=== PATIENT | female | born 1990 | race Hispanic/Latino ===

== ENCOUNTER 2018-08-19 19:04 | Inpatient (IN) | payer OTHER ==
[~2018-08-19] VITALS: Ht 149.9 cm; Wt 72.1 kg
[2018-08-19] MEDS ORDERED: OXYTOCIN-LR 20 UNITS/1000 ML 1,000 ML IV SCH ×2 (19:30→20:00)
[2018-08-19] MEDS: LACTATED RINGERS 1000ML 1,000 ML IV PRN ×2 (20:20→23:53)
[2018-08-19 20:32] VITALS: BP 127/75
[2018-08-19 20:36] LABS: HEMATOCRIT 31.6 % (36-48); MEAN CORPUSCULAR HEMOGLOBIN 30.3 pg (27.0-33.0); MEAN CORPUSCULAR HGB CONC 33.9 g/dL (32.0-36.0); MEAN CORPUSCULAR VOLUME 89.3 fL (79-99); NUCLEATED RED BLOOD CELLS 0.1 % (0.0-0.19); PLATELET COUNT (AUTO) 139 K/uL (130-400); RED BLOOD CELL COUNT(AUTO) 3.54 MIL/uL (4.00-5.50); RED CELL DISTRIBUTION WIDTH 14.3 % (11.0-15.5); WHITE BLOOD COUNT (AUTO) 8.9 K/uL (4.8-10.8)
[2018-08-19 20:41] LABS: APPEARANCE,URINE Clear (CLEAR); BILIRUBIN,URINE Negative (NEGATIVE); COLOR,URINE Yellow (YELLOW); GLUCOSE, URINE (UA) Negative (NEGATIVE); KETONES,URINE Negative (NEGATIVE); LEUKOCYTE ESTERASE ,URINE Negative (NEGATIVE); NITRATE,URINE Negative (NEGATIVE); OCCULT BLOOD,URINE Negative (NEGATIVE); PROTEIN,URINE Negative (NEGATIVE); UROBILINOGEN,URINE 0.2 mg/dL (0.2-1.0)
[2018-08-19] MEDS ORDERED: PREN1TAB80 PO (21:32)
[2018-08-19] MEDS ORDERED: ACYC800T PO (21:32)
[2018-08-20] MEDS ORDERED: LACTATED RINGERS 500 ML 500 ML IV PRN (09:15)
[2018-08-20] MEDS ORDERED: NALOXONE HCL 0.4 MG/1 ML ML IV PRN (09:15)
[2018-08-20] MEDS ORDERED: EPHEDRINE SULFATE 50 MG/ML AMPULE IVP PRN (09:15)
[2018-08-20] MEDS ORDERED: LIDOCAINE 2%-EPI 1:200,000 20 ML VIAL IJ ONE (09:27)
[2018-08-20] MEDS ORDERED: METHYLERGONOVINE MALEATE 0.2 MG/1 ML ML ONE (11:03)
[2018-08-20] MEDS ORDERED: METHYLERGONOVINE MALEATE 0.2 MG/1 ML ML IM SCH (11:05)
[2018-08-20] MEDS ORDERED: DIPH,PERTUSS(ACELL),TET VAC/PF 0.5 ML VIAL IM PRN (11:30)
[2018-08-20] MEDS ORDERED: BENZOCAINE/LANOLIN/ALOE VERA 60 ML AEROSOL TP PRN (11:30)
[2018-08-20] MEDS ORDERED: MEASLES/MUMPS/RUBELLA VACCINE, LIVE 0.5 ML/VIAL SQ PRN (11:30)
[2018-08-20] MEDS ORDERED: WITCH HAZEL 1 PAD TP PRN (11:30)
[2018-08-20] MEDS ORDERED: LANOLIN 30GM OINTMENT TP PRN (11:30)
[2018-08-20 13:00] VITALS: BP 123/75
[2018-08-20 15:20] VITALS: BP 135/84
[2018-08-20] MEDS: IBUPROFEN 800 MG TAB PO PRN (15:20)
[2018-08-20 19:17] VITALS: BP 122/81
[2018-08-20] MEDS: ACETAMINOPHEN 325 MG TAB PO PRN (20:46)
[2018-08-21 00:36] VITALS: BP 114/63
[2018-08-21 04:05] VITALS: BP 97/60
[2018-08-21] MEDS: IBUPROFEN 800 MG TAB PO PRN (04:20)
[2018-08-21 07:16] VITALS: BP 116/71
[2018-08-21 07:41] LABS: HEMATOCRIT 31.1 % (36-48); MEAN CORPUSCULAR HEMOGLOBIN 29.7 pg (27.0-33.0); MEAN CORPUSCULAR HGB CONC 33.2 g/dL (32.0-36.0); MEAN CORPUSCULAR VOLUME 89.4 fL (79-99); NUCLEATED RED BLOOD CELLS 0.1 % (0.0-0.19); PLATELET COUNT (AUTO) 113 K/uL (130-400); RED BLOOD CELL COUNT(AUTO) 3.47 MIL/uL (4.00-5.50); RED CELL DISTRIBUTION WIDTH 14.4 % (11.0-15.5); WHITE BLOOD COUNT (AUTO) 8.8 K/uL (4.8-10.8)
[2018-08-21] MEDS: ACETAMINOPHEN 325 MG TAB PO PRN (09:03)
[2018-08-21 11:40] VITALS: BP 107/67
[2018-08-21 13:12] LABS: HEPATITIS Bs ANTIGEN SCREEN P Negative (Negative)
--- NOTE | 2018-08-21 13:40 | NUR ---
DISCHARGE PT LEFT UNIT VIA WHEELCHAIR, WITH BABY IN ARMS, ACCOMPANIED BY SIGNIFICANT OTHER. DENIED PAIN AND HAD NO COMPLAINTS. BABY STRAPPED IN CAR SEAT. PT AND BABY TRANSPORTED BY PERSONAL VEHICLE.
== END 2018-08-21 13:40 | disposition home or self-care (01) | DRG 807 ==
LOC: OBSVTOIN 19:04 → LDH 19:04 → WSH 08-20 12:48
PROVIDERS: ADMIT Obstetrics & Gynecology; ATTEND Obstetrics & Gynecology
PROC: 10E0XZZ Delivery of Products of Conception, External Approach (ICD-10-PCS; principal; 2018-08-20)
PROC: 3E033VJ Introduction of Other Hormone into Peripheral Vein, Percutaneous Approach (ICD-10-PCS; 2018-08-20)
PROC: 10907ZC Drainage of Amniotic Fluid, Therapeutic from Products of Conception, Via Natural or Artificial Opening (ICD-10-PCS; 2018-08-20)
PROC: 3E0R3BZ Introduction of Anesthetic Agent into Spinal Canal, Percutaneous Approach (ICD-10-PCS; 2018-08-20)
PROC: 00HU33Z Insertion of Infusion Device into Spinal Canal, Percutaneous Approach (ICD-10-PCS; 2018-08-20)
PROC: 3E0234Z Introduction of Serum, Toxoid and Vaccine into Muscle, Percutaneous Approach (ICD-10-PCS; 2018-08-20)
PROC: 3E0134Z Introduction of Serum, Toxoid and Vaccine into Subcutaneous Tissue, Percutaneous Approach (ICD-10-PCS; 2018-08-20)
DX: O80 Encounter for full-term uncomplicated delivery (principal); Z37.0 Single live birth; Z23 Encounter for immunization; Z3A.39 39 weeks gestation of pregnancy
CPT/HCPCS: 36415; 81003; 85027; 86592; 86701; 86850; 86900; 86901; 87340; 87390; A4314; G0378; J2210; J2590; J3490; J7120